=== PATIENT | female | born 1995 | race Caucasian/White ===

== ENCOUNTER 2019-05-15 23:41 | Emergency (ER) | payer OTHER ==
[~2019-05-15] VITALS: Ht 165.1 cm; Wt 90.0 kg
[2019-05-16] MEDS ORDERED: dexamethasone sod phosphate 10mg/ml inj IM STA (00:24)
[2019-05-16] MEDS ORDERED: ketorolac trometh inj. 60 MG/2 ML VIAL IM ONE (00:25)
[2019-05-16] MEDS ORDERED: diazepam 5mg tablet PO ONE (00:25)
[2019-05-16] MEDS ORDERED: HYDROcodone/acetaminophen 10/325mg tab PO ONE (00:25)
[2019-05-16] MEDS ORDERED: NAPR-56 PO (00:29)
[2019-05-16] MEDS ORDERED: CYCL-1 PO (00:29)
[2019-05-16 00:57] VITALS: BP 136/79
== END 2019-05-16 01:01 | disposition home or self-care (01) ==
LOC: ER 23:42
DX: S39.012A Strain of muscle, fascia and tendon of lower back, initial encounter (principal); M62.838 Other muscle spasm; Z79.899 Other long term (current) drug therapy; X58.XXXA Exposure to other specified factors, initial encounter; Y93.89 Activity, other specified; Y92.89 Other specified places as the place of occurrence of the external cause; Y99.8 Other external cause status
CPT/HCPCS: 96372; 99283; J1100; J1885